=== PATIENT | male | born 1965 | race Caucasian/White ===

== ENCOUNTER 2017-05-31 15:52 | Inpatient (IN) | payer OTHER ==
[~2017-05-31] VITALS: Ht 180.3 cm; Wt 82.6 kg
--- NOTE | ~2017-05-31 | PN ---
Unit #: [id number] #: [id number] Patient: KILO ROSE [id number] [facility] [address] [place] [address] [id number] I MR#: [id number] NAME: KILO ROSE. ROOM: P175 Age: 51 Sex: M Admission Date: 05/31/2017 : 1965 Attending Physician: Lewis Rascon M.D. Admitting Physician: Lewis Rascon M.D. Primary Care Physician: Laurita Ireland PROGRESS NOTES DATE 06/04/2017 DISCUSSION Mr. Rose is a 51-year-old, white male who was seen today and chart was reviewed and case was discussed with the staff. He has been anxious, withdrawn and rather seclusive to himself. Meanwhile, he has been cooperative with treatment recommendations. He has been taking medications and tolerating them fairly well with no reported side effects. MENTAL STATUS EXAM Middle-aged white male who was casually dressed with fair personal hygiene, appears to be in no acute distress or discomfort. He was awake and alert on interaction with intact orientation. His mood was anxious with congruent affect. His speech was slow and goal directed. He denies any suicidal or homicidal ideation. Also, denies any auditory or visual hallucinations. His insight and judgement remains slightly impaired. TREATMENT PLAN 1. We will continue him on his current medications and treatment protocol. We will monitor his response to the medication and make further adjustments as needed. 2. We will continue to follow up. Dictated by... Laurita Beyer/octavia TD: 06/04/2017 22:12 JOB #: [id number] Unit #: [id number] #: [id number] Patient: KILO ROSE PARKERSTEPHAN PROGRESS NOTES Page 1 of 1 X Lewis Rascon MD X PROGRESS NOTE
--- NOTE | ~2017-05-31 | PN ---
Unit #: [id number] #: [id number] Patient: KILO ROSE [id number] [facility] [address] [place] [address] [id number] I MR#: [id number] NAME: KILO ROSE. ROOM: [facility] Age: 51 Sex: M Admission Date: 05/31/2017 : 1965 Attending Physician: Lewis Rascon M.D. Admitting Physician: Lewis Rascon M.D. Primary Care Physician: Laurita Ireland PROGRESS NOTES DATE OF SERVICE 06/05/2017 DISCUSSION Mr. Rose is a 51-year-old white male who was seen today. Chart was reviewed and case was discussed with the staff. He has been anxious, withdrawn, and rather seclusive to himself. Meanwhile, he has been cooperative with the treatment recommendations and has been taking the medications and tolerating them fairly well with no reported side effects. MENTAL STATUS EXAMINATION Middle-aged white male who is casually dressed with fair personal hygiene, appears to be in no acute distress or discomfort. He was awake and alert on interaction with intact orientation. His mood is anxious with congruent affect. His speech is slow and goal-directed. He denies any suicidal or homicidal ideations. His insight and judgment remain slightly impaired. TREATMENT PLAN 1. We will continue him on his current medications and treatment protocol. We will monitor his response to the medications and make further adjustments as needed. 2. We will continue to follow up. Dictated by... Laurita Beyer/lynette TD: 06/05/2017 10:41 JOB #: [id number] Unit #: [id number] #: [id number] Patient: KILO ROSE ОЛЕГ PROGRESS NOTES Page 1 of 1 X Lewis Rascon MD PROGRESS NOTE
--- NOTE | ~2017-05-31 | PN ---
Unit #: [id number] #: [id number] Patient: KILO ROSE [id number] [facility] [address] [place] [address] [id number] I MR#: [id number] NAME: KILO ROSE. ROOM: [facility] Age: 51 Sex: M Admission Date: 05/31/2017 : 1965 Attending Physician: Lewis Rascon M.D. Admitting Physician: Lewis Rascon M.D. Primary Care Physician: Laurita Ireland PROGRESS NOTES DATE 06/03/2017 DISCUSSION Mr. Rose is a 51-year-old, white male who was seen today and chart was reviewed and case was discussed with the staff. He has been in acute distress and discomfort and was found in the bathroom actively vomiting after he has already received an intramuscular injection of Phenergan and has not been able to eat as he stated that he does not feel hungry and he cannot keep anything down and has been in distress and discomfort though has been maintaining a very positive attitude and has been polite and pleasant. MENTAL STATUS EXAM Middle-aged white male who was casually dressed with fair personal hygiene, appears to be in no acute distress or discomfort. He was awake and alert on interaction with intact orientation. His mood was anxious with congruent affect. His speech was slow and goal directed. He denies any suicidal or homicidal ideation. His insight and judgement remains slightly impaired. TREATMENT PLAN 1. We will continue him on his current detox treatment and protocol. We will monitor his response and make further adjustments as needed. 2. We will continue to follow up. Dictated by... Laurita Beyer/octavia TD: 06/04/2017 04:55 JOB #: [id number] Unit #: [id number] #: [id number] Patient: KILO ROSE PROGRESS NOTES Page 1 of 1 X Lewis Rascon MD PROGRESS NOTE
--- NOTE | ~2017-05-31 | HP ---
Unit #: [id number] #: [id number] Patient: KILO ROSE [id number] [place] [address] [id number] MR#: [id number] NAME: KILO ROSE. ROOM: [facility] Age: 51 Sex: M Admission Date: 05/31/2017 : 1965 Attending Physician: Lewis Rascon M.D. Admitting Physician: Lewis Rascon M.D. Primary Care Physician: Roger Cedillo M.D. HISTORY AND PHYSICAL HISTORY OF PRESENT ILLNESS Patient is a 51-year-old male admitted to [facility] on 05/31/2017 to withdrawal from heroin. PAST MEDICAL HISTORY Chronic neck and back pain. PAST SURGICAL HISTORY 1. Back surgery x3. 2. Knee surgery. 3. Tonsils and adenoids. ALLERGIES Penicillin. SOCIAL HISTORY He is unemployed. He lives with his mother and his brother. He smokes 1 pack of cigarettes daily and uses heroin on a daily basis. FAMILY HISTORY Noncontributory. REVIEW OF SYSTEMS CONSTITUTIONAL: No fever or chills. HEENT: Denies any sore throat, ear pain or runny nose. CARDIOVASCULAR: Denies chest pain, irregular heart rhythm or palpitations. CHEST: Denies shortness of breath or cough. No hemoptysis. GASTROINTESTINAL: Denies nausea, vomiting, diarrhea or chronic constipation. ENDOCRINE: Denies history of increased thirst or urination. No recent significant weight loss or gain. GENITOURINARY: Denies dysuria, frequency, or hematuria. SKIN: Denies any rashes. HEMATOLOGIC: Denies history of increased bleeding or bruising. MUSCULOSKELETAL: Denies any hot, swollen joints. No generalized muscle pain. NEUROLOGIC: Denies problems with vision or speech. No frequent, severe headaches. No numbness, tingling or weakness in any extremities. Denies loss of bladder or bowel control. CURRENT MEDICATIONS Patient is not on any home medications. Unit #: [id number] #: [id number] Patient: KILO ROSE PHYSICAL EXAMINATION GENERAL: He is awake, alert, oriented, in no acute distress. VITAL SIGNS: Temperature 99.1, heart rate 64, respirations 17, blood pressure 131/86. HEIGHT: 5 feet 11. WEIGHT: 182 pounds. SKIN: Warm and dry without rash or lesion. HEENT: Normocephalic. TMs not viewed. Oral and nasal passages clear. Conjunctivae clear. PERRLA. EOMs intact. NECK: Supple without lymphadenopathy or thyromegaly. HEART: Regular rate and rhythm without murmur. LUNGS: Clear. ABDOMEN: Soft, nontender. : Not done. EXTREMITIES: No evidence of cyanosis, clubbing or edema. Moves all without focal deficit. NEUROLOGICAL: Grossly within normal limits. Cranial Nerves: II: Visual koch are intact. III, IV AND : Extraocular movements are intact. Pupils are equal, round and reactive to light. V: Facial sensation is grossly normal. VII: Facial movements and expression are normal. VIII: Auditory acuity grossly intact. IX, X: Uvula is midline. Phonation is normal. XI: Patient shrugs shoulders and turns head normally. XII: Tongue protrudes in the midline. Sensory and Motor Function: Sensory and motor sensation is grossly normal. Motor: moves all extremities well. Coordination: Gait is normal. Deep Tendon Reflexes: Intact. IMPRESSION 1. Psychiatric admission. 2. Heroin dependence. 3. Nicotine dependence. 4. Chronic neck and back pain. RECOMMENDATIONS PSYCHIATRIC: Per psychiatrist. MEDICAL: No contraindication to participate in facility's activities. MEDICAL PROGNOSIS Fair. MEDICAL CONDITION Stable. Dictated by... Lucia Coats/guillermo TD: 06/01/2017 16:16 JOB #: [id number] Unit #: [id number] #: [id number] Patient: KILO ROSE HISTORY AND PHYSICAL Page 1 of 1 X REUBEN MEYERS APRN HISTORY AND PHYSICAL
--- NOTE | ~2017-05-31 | DS ---
Unit #: [id number] #: [id number] Patient: KILO ROSE [id number] [facility] [address] [place] [address] [id number] I MR#: [id number] NAME: KILO ROSE. ROOM: [facility] Age: 51 Sex: M Admission Date: 05/31/2017 : 1965 Discharge Date: 06/06/2017 Attending Physician: Lewis Rascon M.D. Primary Care Physician: Roger Cedillo M.D. DISCHARGE SUMMARY IDENTIFYING DATA Mr. Rose is a 51-year-old white male who is a resident of [place], [place] and was self-referred to the hospital on a voluntary basis. HISTORY OF PRESENT ILLNESS Please see initial psychiatric evaluation. PAST PSYCHIATRIC HISTORY Please see initial psychiatric evaluation. PAST MEDICAL HISTORY Please see initial psychiatric evaluation. HOSPITAL COURSE Patient was [facility] and was oriented to the hospital environment. Routine p.r.n. medications were initiated and he was started back on the opiate detox protocol and was closely monitored. He was taking the medications regularly and was tolerating them fairly well and was seen to be very polite and pleasant and cooperative with treatment recommendations and was able to come out of the detox without complications and was willing to continue treatment on outpatient basis. DISCHARGE DIAGNOSES PSYCHIATRIC: 1. Opiate dependence, moderate, in acute withdrawal. 2. Opiate induced mood disorder. MEDICAL: Chronic pain. STRESSORS: Moderate psychosocial stressors. DISCHARGE MEDICATIONS None. CONDITION AT DISCHARGE Stable. PROGNOSIS Fair. Unit #: [id number] #: [id number] Patient: KILO ROSE Dictated by... Laurita Beyer/guillermo TD: 06/06/2017 21:55 JOB #: [id number] DISCHARGE SUMMARY Page 1 of 1 X Lewis Rascon MD X DISCHARGE SUMMARY
--- NOTE | ~2017-05-31 | PA ---
Unit #: [id number] #: [id number] Patient: KILO ROSE [id number] [facility] [address] [place] [address] [id number] I MR#: [id number] NAME: KILO ROSE. ROOM: P175 Age: 51 Sex: M Admission Date: 05/31/2017 : 1965 Date of Assessment: 06/01/2017 Attending Physician: Lewis Rascon M.D. Admitting Physician: Lewis Rascon M.D. Primary Care Physician: Roger Cedillo M.D. PSYCHIATRIC ASSESSMENT DATE OF SERVICE 06/01/2017. IDENTIFYING DATA Mr. Rose is a 51-year-old, , white male who is a resident of [facility] and was self-referred to the hospital on voluntary basis. CHIEF COMPLAINT "I've been using heroin daily." HISTORY OF PRESENT ILLNESS Mr. 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 SUBSTANCE ABUSE HISTORY The patient reports history of opioid abuse and dependence, and started the pain pills and he has been using heroin unknown amount on a daily basis and denies any other substance abuse. PAST PSYCHIATRIC HISTORY The patient has had history of inpatient psychiatric hospitalization at [facility] xavier Guerrero and review of the medical records indicate that currently he is not active in any treatment program, is not seeing a psychiatrist, and not taking any psychotropic medications. PAST MEDICAL HISTORY Chronic neck and back pain. ALLERGIES Penicillin. CURRENT MEDICATIONS None. 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 He does report poor social support system. He is currently unemployed. MENTAL STATUS EXAMINATION Middle-aged white male who was casually dressed with fair personal hygiene, appears to be in no acute distress or discomfort. He was awake and alert on interaction with intact orientation to time, place, and person. His mood was anxious and depressed with a congruent affect. His speech was slow and restricted in content. His thought processes were disorganized with some looseness of associations. He denies any suicidal or homicidal ideations, and also denies any auditory or visual hallucinations. His insight and judgment remain significantly impaired. DIAGNOSTIC IMPRESSION Psychiatric: Opioid dependence, moderate and acute withdrawals; opioid-induced mood disorder. Medical: Chronic neck and back pain. Stressors: Moderate psychosocial stressors. TREATMENT PLAN 1. The patient has presented with a history of mood disorder and substance abuse, and has been decompensating. We will need inpatient hospitalization for safety and stabilization. We will start him on detox protocol. We will closely monitor for any worsening withdrawal symptoms. 2. Supportive therapy was provided to the patient. 3. Safe, structured, and nourishing environment will be provided. ESTIMATED LENGTH OF STAY 5 to 7 days. ABILITY TO HELP SELF Limited. WILLINGNESS TO HELP SELF The patient appears to be willing to help self. STRENGTHS 1. Communicative. 2. Cooperative. PROBLEMS 1. Chronic dysphoric symptoms. 2. Chronic chemical dependency. 3. Poor social support system. DISCHARGE CRITERIA This will be contingent upon the patient's ability to show resolution of his depression and anxiety, and his ability to stay safe to himself, particularly after discharge from the hospital. Dictated by... Laurita Beyer/lucinda Unit #: [id number] #: [id number] Patient: KILO ROSE TD: 06/01/2017 12:19 JOB #: [id number] PSYCHIATRIC ASSESSMENT Page 1 of 1 X Lewis Rascon MD PSYCHIATRIC ASSESSMENT
--- NOTE | ~2017-05-31 | PN ---
Unit #: [id number] #: [id number] Patient: KILO ROSE [id number] [facility] [address] [place] [address] [id number] I MR#: [id number] NAME: KILO ROSE. ROOM: [facility] Age: 51 Sex: M Admission Date: 05/31/2017 : 1965 Attending Physician: Lewis Rascon M.D. Admitting Physician: Lewis Rascon M.D. Primary Care Physician: Laurita Ireland PROGRESS NOTES DATE June 02, 2017 DISCUSSION Mr. Rose is a 51-year-old white male with substance abuse and mood disorder, who was seen today and chart was reviewed and the case was discussed with the staff. He was anxious, withdrawn, and rather seclusive to himself though seemed to be polite and pleasant, cooperative and compliant with treatment recommendations and he has been taking the medications and tolerating them fairly well with no reported side effects. MENTAL STATUS EXAMINATION Middle-aged white male, who was casually dressed with fair personal hygiene and appears to be in no acute distress or discomfort. He was awake and alert on interaction with intact orientation. His mood is anxious with a congruent affect. Speech is slow and goal-directed. He denies any suicidal or homicidal ideations, and also denies any auditory or visual hallucinations. His insight and judgment remain slightly impaired. TREATMENT PLAN 1. We will continue him on his current medications and treatment protocol, and will monitor his response to the medications, and make further adjustments as needed. 2. We will continue to followup. Dictated by... Laurita Beyer/devan TD: 06/03/2017 05:31 JOB #: [id number] Unit #: [id number] #: [id number] Patient: KILO ROSE ОЛЕГ PROGRESS NOTES Page 1 of 1 X Lewis Rascon MD PROGRESS NOTE
[2017-06-01 11:53] LABS: BASOPHIL# 0.1 X10e3 (0-0.3); EOSINOPHIL# 0.1 X10e3 (0-0.7); EOSINOPHIL% 1.1 % (0.0-7.0); HEMATOCRIT 40.5 % (38.0-50.0); HEMOGLOBIN 13.8 gm/dL (13.0-16.0); LYMPHOCYTE# 2.9 X10e3 (1.0-3.5); LYMPHOCYTE% 27.8 % (17.0-45.0); MEAN CELL VOLUME 89.9 FL (83-96); MEAN CORPUSCULAR HEMOGLOBIN 30.7 PG (28-34); MEAN CORPUSCULAR HGB CONC 34.2 g/dL (30-36); MEAN PLATELET VOLUME 8.1 FL (6.5-11.5); MONOCYTE# 1.2 X10e3 (0-1.0); NEUTROPHIL# 6.3 X10e3 (1.5-7.1); NEUTROPHIL% 59.1 % (40-75); PLATELET COUNT 206 X10e3 (140-420); RED CELL DISTRIBUTION WIDTH 13.2 % (11.0-15.5); WHITE BLOOD COUNT 10.6 X10e3 (4.0-10.5)
[2017-06-01 11:59] LABS: ALBUMIN SERUM 3.9 g/dL (3.5-5.0); BILIRUBIN,TOTAL 0.9 mg/dL (0.2-2.0); BUN/CREATININE RATIO 11.42; CALCIUM SERUM 9.1 mg/dL (8.4-10.2); CREATININE SERUM 0.7 mg/dL (0.6-1.4); GLOM FILT RATE Estimated 109.3 mL/min (>60); POTASSIUM 4.3 mmol/L (3.5-5.1); PROTEIN TOTAL SERUM 6.6 g/dL (6.0-8.3)
[2017-06-01 12:05] LABS: DIFF IND NO
[2017-06-03 12:35] LABS: URINE APPEARANCE CLEAR; URINE BLOOD 1+ (NEG); URINE COLOR DK YELLOW; URINE GLUCOSE NEG (NEG); URINE KETONE TRACE (NEG); URINE LEUKOCYTE ESTERASE 1+ (NEG); URINE NITRATE NEG (NEG); URINE PROTEIN 1+ (NEG); URINE SPECIFIC GRAVITY 1.028 (1.003-1.035)
[2017-06-03 12:38] LABS: CULTURE INDICATED? YES; URINE BACTERIA AUWI NEG (NEGATIVE); URINE SQUAMOUS EPITHELIAL CELL OCC /[HPF]
[2017-06-03 12:48] LABS: AMPHETAMINE NEG (NEG); BARBITURATES NEG (NEG); BENZODIAZEPINES NEG (NEG); COCAINE NEG (NEG); MARIJUANA NEG (NEG); OPIATES NEG (NEG); TRICYCLIC ANTIDEPRESSANTS NEG (NEG); U METHADONE NEG (NEG)
[2017-06-03 13:13] LABS: URINE BILIRUBIN NEG (NEG); URINE MUCUS PRESENT
== END 2017-06-06 08:44 | DRG 897 ==
LOC: P1E 19:28
PROVIDERS: Psychiatry & Neurology Psychiatry
PROC: HZ2ZZZZ Detoxification Services for Substance Abuse Treatment (ICD-10-PCS; principal; 2017-06-01)
DX: F11.23 Opioid dependence with withdrawal (principal); F11.24 Opioid dependence with opioid-induced mood disorder; M54.2 Cervicalgia
CPT/HCPCS: 80053; 80307; 81003; 85025; 87086; J2550